=== PATIENT | female | born 1950 | race Caucasian/White ===

== ENCOUNTER 2017-01-04 12:27 | Outpatient (CLI) | payer MEDICARE, MEDICAID | END 2017-01-04 12:28 | disposition home or self-care (01) | DX: I10 Essential (primary) hypertension (principal); R53.83 Other fatigue ==

== ENCOUNTER 2017-07-02 09:24 | Outpatient (CLI) | payer MEDICARE, OTHER, MEDICAID ==
--- NOTE | 2017-07-02 11:49 | XRAY Report ---
TWO-VIEW LUMBAR SPINE: 07/02/2017 CLINICAL INDICATION: Back pain. FINDINGS: AP, lateral views of the lumbar spine demonstrate extensive degenerative disk disease, wit h degenerative levoscoliosis. There is a compression fracture of T12, with approximately 70% anterio r height loss. Vascular calcifications are present. The bowel gas pattern appears unremarkable. IMPRESSION: EXTENSIVE DEGENERATIVE CHANGES IN THE LUMBAR SPINE, WITH DEGENERATIVE LEVOSCOLIOSIS. T1 2 COMPRESSION FRACTURE. JOB #: [id number] EXT JOB #:[id number]
== END 2017-07-02 09:25 | disposition home or self-care (01) ==
LOC: DI 09:24
PROVIDERS: ATTEND Family Medicine
DX: M54.5 Low back pain (principal); M51.36 Other intervertebral disc degeneration, lumbar region; M41.86 Other forms of scoliosis, lumbar region; S22.089A Unspecified fracture of T11-T12 vertebra, initial encounter for closed fracture; Z91.81 History of falling
CPT/HCPCS: 72100

== ENCOUNTER 2018-04-28 08:00 | Outpatient (CLI) | payer MEDICARE, OTHER, MEDICAID ==
[2018-04-28 12:40] LABS: BASOPHILS # (AUTO) 0.1 10^3/uL (0.0-0.1); BASOPHILS % (AUTO) 0.8 %; EOSINOPHILS # (AUTO) 0.2 10^3/uL (0.0-0.7); EOSINOPHILS % (AUTO) 2.6 %; HGB - HEMOGLOBIN 14.9 g/dL (12.0-16.0); LYMPHOCYTES # (AUTO) 2.7 10^3/uL (1.5-3.5); LYMPHOCYTES % (AUTO) 29.6 %; MEAN CORPUSCULAR HEMOGLOBIN 29.5 pg (27.0-31.0); MEAN CORPUSCULAR VOLUME 92.2 fL (81.0-99.0); MEAN PLATELET VOLUME 10.8 fL (7.9-10.8); MONOCYTES # (AUTO) 0.8 10^3/uL (0.0-1.0); MONOCYTES % (AUTO) 8.9 %; NEUTROPHILS # (AUTO) 5.3 10^3/uL (1.5-6.6); NEUTROPHILS % (AUTO) 58.1 %; PLT - PLATELET COUNT 221 10^3/uL (130-450); RED BLOOD COUNT 5.04 10^6/uL (4.20-5.40); RED CELL DISTRIBUTION WIDTH 15.7 % (12.0-15.0); WHITE BLOOD COUNT 9.1 x10^3/uL (4.8-10.8)
[2018-04-28 13:20] LABS: THYROID STIMULATING HORMONE 1.43 uIU/mL (0.34-5.60)
== END 2018-04-28 08:01 | disposition home or self-care (01) ==
LOC: LAB.WCP 08:00
PROVIDERS: ATTEND Family Medicine
DX: R53.83 Other fatigue (principal); N95.0 Postmenopausal bleeding
CPT/HCPCS: 36415; 82306; 82607; 84443; 85025

== ENCOUNTER 2018-05-09 19:00 | Outpatient (CLI) | payer MEDICARE, OTHER, MEDICAID ==
--- NOTE | 2018-05-10 08:41 | Ultrasound Report ---
Procedure Date: 05/09/2018 Accession Number: [id number] / [id number] Procedure: US - Pelvic w/Transvaginal CPT Code: FULL RESULT: EXAM: Pelvic ultrasound DATE: 05/09/2018 7:40 PM CLINICAL HISTORY: POSTMENOPAUSAL COMPARISON: None. TECHNIQUE: Realtime transabdominal imaging of the pelvis, with static image documentation. The patient declined transvaginal scanning. FINDINGS: Uterus: 7.6 x 3.6 x 2.1 cm, volume 30 cc. Anteverted position. Normal overall size and echotexture. Masses: Multiple leiomyomas. A fundal leiomyoma measures 3.2 cm. Lower uterine segment leiomyoma measures 3.5 cm. Endometrium: 3 mm. Normal. Cervix: Not visualized. Right Ovary/Adnexa: No evident adnexal mass. Right ovary not confidently identified on transabdominal scanning. Left Ovary/Adnexa: No evidence of adnexal mass. Left ovary not confidently identified on transabdominal scanning. Free Fluid: None. Other: None. IMPRESSION: Leiomyomas. Nonvisualization of both ovaries on transabdominal scanning, but no evident adnexal mass identified. [facility]
== END 2018-05-09 19:01 | disposition home or self-care (01) ==
LOC: DI 19:00
PROVIDERS: ATTEND Family Medicine
DX: D25.9 Leiomyoma of uterus, unspecified (principal)
CPT/HCPCS: 76830; 76856

== ENCOUNTER 2018-06-14 08:00 | Outpatient (CLI) | payer MEDICARE, OTHER, MEDICAID ==
[2018-06-14 18:24] LABS: THYROID STIMULATING HORMONE 1.43 uIU/mL (0.34-5.60)
== END 2018-06-14 08:01 | disposition home or self-care (01) ==
LOC: LAB.F 08:00
PROVIDERS: ATTEND Physician Assistant Medical
DX: R41.3 Other amnesia (principal); R53.83 Other fatigue
CPT/HCPCS: 36415; 82607; 84443